=== PATIENT | female | born 1995 | race Caucasian/White ===

== ENCOUNTER 2017-11-09 22:25 | Emergency (ER) | payer BC ==
[2017-11-10] MEDS ORDERED: AMOXICILLIN TR/POT CLAVULANATE 500-125 MG TAB PO ONE (00:30)
[2017-11-10] MEDS ORDERED: AMOXICILLIN TRIHYDRATE 500 MG CAPSULE PO ONE (00:30)
--- NOTE | 2017-11-10 00:32 | ER Document Report ---
ED Medical Screen (RME) - General Chief Complaint: Dog bite to R hand Stated Complaint: DOG BITE LEFT FINGERS Time Seen by Provider: 11/10/17 00:30 Notes: 22-year-old female, chief complaint of dog bite to the right hand, trying to break up her own dogs from fighting, was bitten by the portable and the pedicle held on while she tried to get her hands out. She reports swelling and pain in her second third and fourth fingers of the right hand. Small amount of bleeding. She is up-to-date on her tetanus within 5 years, dogs up-to-date on her vaccinations. TRAVEL OUTSIDE OF THE [place] IN LAST 30 DAYS: No - Related Data Allergies/Adverse Reactions: No Known Allergies Allergy (Unverified 11/09/17 22:28) Physical Exam - Vital signs Vitals: Temp Pulse BP Pulse Ox 98.6 F 100 113/81 100 11/09/17 22:41 11/09/17 22:41 11/09/17 22:41 11/09/17 22:41 - Extremities General upper extremity: Other - Swelling over the distal ends of the second third and fourth fingers of the right hand with abrasions with small amount of bleeding. Sensation, cap refill, and range of motion intact. Remaining hand exam unremarkable. Normal nails. Course - Vital Signs Vital signs: Temp Pulse Resp BP Pulse Ox 98.6 F 100 113/81 100 11/09/17 22:41 11/09/17 22:41 11/09/17 22:41 11/09/17 22:41
--- NOTE | 2017-11-10 02:05 | RADIOLOGY REPORT (SQ) ---
EXAM DESCRIPTION: XR HAND 3 OR MORE VIEWS COMPLETED DATE/TME: 11/10/2017 00:32 CLINICAL HISTORY: 22 years Female, dog bite, swelling and pain to fingers COMPARISON: None. Findings: Known soft tissue injury; no radioopaque foreign body. Bones, joints, and soft tissues of the XR RIGHT HAND 3 VIEWS appear otherwise intact. IMPRESSION: Soft tissue injury; else, no acute findings. .
--- NOTE | 2017-11-10 03:11 | ER Document Report ---
ED Animal Bite - General Chief Complaint: Dog bite to R hand Stated Complaint: DOG BITE LEFT FINGERS Time Seen by Provider: 11/10/17 00:30 Notes: Patient is a 22-year-old female, chief complaint of dog bite to the right hand. Patient was trying to break up her own dogs from fighting, was bitten by the pitbull and the dog held on while she tried to get her hand out. She reports swelling and pain in her second third and fourth fingers of the right hand. Small amount of bleeding. She is up-to-date on her tetanus within 5 years, dogs up-to-date on her vaccinations. TRAVEL OUTSIDE OF THE [place] IN LAST 30 DAYS: No - Related Data Allergies/Adverse Reactions: No Known Allergies Allergy (Unverified 11/09/17 22:28) Past Medical History - General Information source: Patient - Social History Smoking Status: Never Smoker Frequency of alcohol use: None Drug Abuse: None Lives with: Family Family History: Reviewed & Not Pertinent Patient has suicidal ideation: No Patient has homicidal ideation: No - Medical History Medical History: Negative Renal/ Medical History: Denies: Hx Peritoneal Dialysis Surgical Hx: Negative - Immunizations Immunizations up to date: Yes Hx Diphtheria, Pertussis, Tetanus Vaccination: Yes Review of Systems - Review of Systems Constitutional: No symptoms reported EENT: No symptoms reported Cardiovascular: No symptoms reported Respiratory: No symptoms reported Gastrointestinal: No symptoms reported Genitourinary: No symptoms reported Female Genitourinary: No symptoms reported Musculoskeletal: See HPI Skin: See HPI Hematologic/Lymphatic: No symptoms reported Neurological/Psychological: No symptoms reported Physical Exam - Vital signs Vitals: Temp Pulse BP Pulse Ox 98.6 F 100 113/81 100 11/09/17 22:41 11/09/17 22:41 11/09/17 22:41 11/09/17 22:41 - Notes Notes: GENERAL: Alert, interacts well. No acute distress. HEAD: Normocephalic, atraumatic. EYES: Pupils equal, round, and reactive to light. Extraocular movements intact. ENT: Oral mucosa moist, tongue midline. NECK: Full range of motion. Supple. Trachea midline. LUNGS: Clear to auscultation bilaterally, no wheezes, rales, or rhonchi. No respiratory distress. HEART: Regular rate and rhythm. No murmur ABDOMEN: Soft, non-tender. Non-distended. Bowel sounds present in all 4 quadrants. EXTREMITIES: Abrasions over the second third and fourth fingers of the right hand over the dorsal aspect, small amount of bleeding, no gaping wounds, minimal soft tissue swelling, normal range of motion of the hand, normal capillary refill and sensation, normal nail exam. Otherwise unremarkable upper extremity exam with normal wrist, arm, shoulder. BACK: no cervical, thoracic, lumbar midline tenderness. No saddle anesthesia, normal distal neurovascular exam. NEUROLOGICAL: Alert and oriented x3. Normal speech. [cranial nerves II through XII grossly intact]. PSYCH: Normal affect, normal mood. SKIN: Warm, dry, normal turgor. No rashes or lesions noted. Course - Re-evaluation Re-evalutation: Wounds cleaned and dressed, Augmentin started, discussed wound care, follow-up, return precautions. X-ray with soft tissue swelling but no fracture or foreign body. Patient states understanding and agreement. - Vital Signs Vital signs: Temp Pulse Resp BP Pulse Ox 98.7 F 78 16 122/71 97 11/10/17 03:32 11/10/17 03:32 11/10/17 03:32 11/10/17 03:32 11/10/17 03:32 - Diagnostic Test Radiology reviewed: Image reviewed, Reports reviewed Discharge - Discharge Clinical Impression: Localized swelling on right hand Dog bite Qualifiers: Encounter type: initial encounter Qualified Code(s): W54.0XXA - Bitten by dog, initial encounter Abrasion of right hand Qualifiers: Encounter type: initial encounter Qualified Code(s): S60.511A - Abrasion of right hand, initial encounter Condition: Stable Disposition: HOME, SELF-CARE Additional Instructions: Keep wound clean, clean daily with soap and water, dab dry, apply topical antibiotic nonadhesive dressing. Avoid soaking. Take antibiotic as prescribed. I recommend taking a probiotic while taking this as well. Return immediately for any worsening symptoms including spreading redness, discolored drainage, swelling, severe pain, fever, or any other concerning or worsening symptoms. Prescriptions: Amox Tr/Potassium Clavulanate [Augmentin 875-125 Tablet] 1 tab PO BID 7 Days tablet
[2017-11-10 03:33] VITALS: BP 122/71
== END 2017-11-10 03:33 | disposition home or self-care (01) ==
LOC: ER 22:25
DX: S60.511A Abrasion of right hand, initial encounter (principal); R22.31 Localized swelling, mass and lump, right upper limb; W54.0XXA Bitten by dog, initial encounter; Y92.009 Unspecified place in unspecified non-institutional (private) residence as the place of occurrence of the external cause
CPT/HCPCS: 99283